=== PATIENT | female | born 1945 ===

== ENCOUNTER 2017-09-22 12:39 | Emergency (ER) | payer OTHER ==
[~2017-09-22] VITALS: Ht 160 cm; Wt 63.5 kg
[~2017-09-22 12:39] MED LIST: IBUPROFEN800 MG PO; SEPTRA DS TABLE1 TAB PO
[2017-09-22] MEDS ORDERED: SYNTHROID75 MCG (12:46)
[2017-09-22] MEDS ORDERED: ZOLOFT100 MG (12:46)
[2017-09-22] MEDS ORDERED: ALENDRONATE SOD40 MG (12:47)
== END 2017-09-22 20:27 | disposition home or self-care (01) ==
LOC: ER 12:39
DX: K57.32 Diverticulitis of large intestine without perforation or abscess without bleeding (principal)

== ENCOUNTER 2021-03-25 08:16 | Emergency (ER) | payer OTHER ==
[~2021-03-25] VITALS: Ht 160 cm; Wt 63.5 kg
[~2021-03-25 08:16] MED LIST changes: +ALENDRONATE SOD40 MG; +SYNTHROID75 MCG; +ZOLOFT100 MG
[2021-03-25] MEDS ORDERED: SIMVASTATIN80 MG PO (08:25)
[2021-03-25] MEDS ORDERED: ZITHROMAX TRI-500 MG PO (11:47)
[2021-03-25] MEDS ORDERED: NORFLEX100MG PO (11:47)
== END 2021-03-25 11:54 | disposition home or self-care (01) ==
LOC: ER 08:16
DX: B34.9 Viral infection, unspecified (principal); Z11.52 Encounter for screening for COVID-19

== ENCOUNTER 2021-08-29 12:45 | Emergency (ER) | payer OTHER ==
[~2021-08-29] VITALS: Ht 157.5 cm; Wt 63.5 kg
[~2021-08-29 12:45] MED LIST changes: +NORFLEX100MG PO; +SIMVASTATIN80 MG PO; +ZITHROMAX TRI-500 MG PO
[2021-08-29] MEDS ORDERED: DEPAKOTE ER500 MG (13:09)
[2021-08-29] MEDS ORDERED: SEROQUEL50 MG (13:10)
[2021-08-29] MEDS ORDERED: EZETIMIBE10 MG (13:11)
[2021-08-29] MEDS ORDERED: PANTOPRAZOLE SO40 M2 (13:11)
[2021-08-29] MEDS ORDERED: HYDRODIURIL12.5 MG (13:11)
[2021-08-29] MEDS ORDERED: ESTAZOLAM1 MG (13:12)
== END 2021-08-29 23:51 | disposition home or self-care (01) ==
LOC: ER 12:45
DX: K57.90 Diverticulosis of intestine, part unspecified, without perforation or abscess without bleeding (principal); R10.84 Generalized abdominal pain; Z88.0 Allergy status to penicillin; Z91.013 Allergy to seafood; Z20.822 Contact with and (suspected) exposure to COVID-19